=== PATIENT | male | born 1970 | race Caucasian/White ===

== ENCOUNTER 2020-11-20 08:51 | Emergency (ER) | payer OTHER, SELFPAY ==
[2020-11-20 09:26] LABS: #Lymphocytes 0.8 thou/uL (1.20-3.40); #Monocytes 0.4 thou/uL (0.11-0.59); #Neutrophils 4.3 thou/uL (1.40-6.50); %Basophils 0.8 % (0.0-1.0); %Eosinophils 0.1 % (0.0-10.0); %Lymphocytes 13.9 % (21.0-51.0); %Monocytes 7.5 % (0.0-10.0); %Neutrophils 77.7 % (42.0-75.0); Hemoglobin 16.2 g/dL (14.0-18.0); Mean Corpuscular Hemoglobin 30.4 pg (27.0-31.0); Mean Corpuscular Volume 92.1 fL (78.0-98.0); Mean Platelet Volume 9.3 fL (7.4-10.4); Platelet Count 137 thou/uL (130-400); Red Blood Cell (RBC) Count 5.32 mill/uL (4.70-6.10); White Blood Cell (WBC) Count 5.5 thou/uL (4.8-10.8)
[2020-11-20] MEDS ORDERED: Acetaminophen 500 MG TAB ONE (09:42)
[2020-11-20] MEDS ORDERED: Ondansetron PF 4 MG/2 ML Vial ONE (09:46)
[2020-11-20 09:49] LABS: ALT (SGPT) 40 U/L (8-55); AST (SGOT) 69 U/L (5-34); Albumin 3.6 g/dL (3.5-5.0); Alkaline Phosphatase 68 U/L (40-110); Anion Gap 13 mmol/L (10-20); BUN (Urea Nitrogen) 11 mg/dL (8.4-25.7); Bilirubin, Total 0.4 mg/dL (0.2-1.2); Calc. Creatinine Clearance 0 mL/min (70-130); Calcium 8.5 mg/dL (7.8-10.44); Carbon Dioxide 26 mmol/L (22-29); Chloride 100 mmol/L (98-107); Globulin 3.2 g/dL (2.4-3.5); Glucose 105 mg/dL (70-105); Lipase 48 U/L (8-78); Potassium 3.9 mmol/L (3.5-5.1); Protein, Total 6.8 g/dL (6.0-8.3); Sodium 135 mmol/L (136-145)
== END 2020-11-20 11:40 | disposition home or self-care (01) ==
LOC: ERS 08:51
DX: U07.1 COVID-19 (principal); R11.2 Nausea with vomiting, unspecified; Z87.891 Personal history of nicotine dependence
CPT/HCPCS: 36415; 71045; 80053; 83690; 85025; 93005; 96374; J2405

== ENCOUNTER 2023-08-14 07:15 | Day surgery (SDC) | payer OTHER ==
[2023-08-14] MEDS ORDERED: Fluorouracil 100 MG, Enoxaparin 25 MG, EPINEPHrine 0.3 MG in Ophthalmic Irrigation Solu... IRR SCH (07:45)
[2023-08-14] MEDS ORDERED: Cyclopentolate 1% Opth Drop 2 ML BOT ONE (08:47)
[2023-08-14] MEDS ORDERED: PHENYLephrine 2.5% Ophth Soln 15 ml Bottle ONE (08:47)
[2023-08-14] MEDS ORDERED: PROPOFOL 20 ML ONE (10:11)
[2023-08-14] MEDS ORDERED: Midazolam HCl 2 mg/2 ml Vial ONE (10:11)
[2023-08-14] MEDS ORDERED: fentaNYL 50 mcg/mL 1 mL Vial ONE (10:11)
[2023-08-14] MEDS ORDERED: Bupivacaine 0.75% 10 ML VIAL ONE (11:35)
[2023-08-14] MEDS ORDERED: Maxitrol 0.1% Opth Oint 3.5 GM TUBE ONE (11:35)
[2023-08-14] MEDS ORDERED: Triamcinolone 40 MG/ML VIAL ONE (11:35)
[2023-08-14] MEDS ORDERED: CEFAZOLIN 1 GM VIAL ONE (11:35)
[2023-08-14] MEDS ORDERED: Lidocaine 4% PF 5 ML AMP ONE (11:35)
[2023-08-14] MEDS ORDERED: Enoxaparin 30 MG (0.3 mL) SYRINGE ONE (11:35)
[2023-08-14] MEDS ORDERED: Lidocaine 1% PF 5 ML VIAL ONE (11:35)
== END 2023-08-14 13:15 | disposition home or self-care (01) ==
LOC: SDC 07:15
PROVIDERS: ATTEND Ophthalmology Retina Specialist
PROC: 08943ZZ Drainage of Right Vitreous, Percutaneous Approach (ICD-10-PCS; principal; 2023-08-14)
DX: H33.021 Retinal detachment with multiple breaks, right eye (principal)
CPT/HCPCS: J0171; J0690; J1650; J2250; J2704; J3010; J3301; J3490; J9190

== ENCOUNTER 2023-08-31 10:13 | Emergency (ER) | payer OTHER | END 2023-08-31 10:54 | disposition home or self-care (01) | LOC: ERS 10:13 | DX: U07.1 COVID-19 (principal) | CPT/HCPCS: 99283 ==

== ENCOUNTER 2023-11-27 06:57 | Day surgery (SDC) | payer OTHER ==
[2023-11-26 13:59] VITALS: BMI 30.2
[~2023-11-27 06:57] MED LIST: EPINEPHrine 0.3 MG in Ophthalmic Irrigation Solution 500 ML IRR SCH
[2023-11-27] MEDS ORDERED: Midazolam HCl 2 mg/2 ml Vial ONE ×2 (07:18→08:22)
[2023-11-27] MEDS ORDERED: PROPOFOL 20 ML ONE (07:18)
[2023-11-27] MEDS ORDERED: fentaNYL 50 mcg/mL 1 mL Vial ONE (07:18)
[2023-11-27] MEDS ORDERED: PHENYLephrine 2.5% Ophth Soln 15 ml Bottle ONE (07:46)
[2023-11-27] MEDS ORDERED: Triamcinolone 40 MG/ML VIAL ONE (08:55)
[2023-11-27] MEDS ORDERED: Lidocaine 4% PF 5 ML AMP ONE (08:55)
[2023-11-27] MEDS ORDERED: Bupivacaine 0.75% 10 ML VIAL ONE (08:55)
[2023-11-27] MEDS ORDERED: CEFAZOLIN 1 GM VIAL ONE (08:55)
[2023-11-27] MEDS ORDERED: Maxitrol 0.1% Opth Oint 3.5 GM TUBE ONE (08:55)
[2023-11-27] MEDS ORDERED: Lidocaine 1% PF 5 ML VIAL ONE (08:55)
== END 2023-11-27 10:10 | disposition home or self-care (01) ==
LOC: SDC 06:57
PROVIDERS: ATTEND Ophthalmology Retina Specialist
PROC: 08T43ZZ Resection of Right Vitreous, Percutaneous Approach (ICD-10-PCS; principal; 2023-11-27)
PROC: 08NE3ZZ Release Right Retina, Percutaneous Approach (ICD-10-PCS; principal; 2023-11-27)
DX: H43.391 Other vitreous opacities, right eye (principal)
CPT/HCPCS: J0171; J0690; J2250; J2704; J3010; J3301; J3490